=== PATIENT | female | born 2000 | race Native Hawaiian/Other Pacific Islander ===

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

== ENCOUNTER 2018-10-12 15:44 | Emergency (ER) | payer OTHER ==
[~2018-10-12] VITALS: Ht 162.6 cm; Wt 54.4 kg
[2018-10-12 16:20] VITALS: BP 131/84; TEMP 98.1
== END 2018-10-12 16:20 | disposition home or self-care (01) ==
LOC: ED 15:44
DX: B86 Scabies (principal)
CPT/HCPCS: 99281

== ENCOUNTER 2018-12-13 15:31 | Emergency (ER) | payer OTHER ==
[~2018-12-13] VITALS: Ht 162.6 cm; Wt 54.4 kg
[2018-12-13 15:35] VITALS: TEMP 97.8
[2018-12-13 16:45] VITALS: BP 113/69
[2018-12-13] MEDS ORDERED: BIRTH CONTROL PILLS PO (16:51)
== END 2018-12-13 16:45 | disposition home or self-care (01) ==
LOC: ED 15:31
DX: R55 Syncope and collapse (principal); R05 Cough; R50.9 Fever, unspecified; J02.9 Acute pharyngitis, unspecified
CPT/HCPCS: 81000; 81025; 87502; 87651; 93005; 99283

== ENCOUNTER 2021-10-14 18:56 | Emergency (ER) | payer OTHER ==
[~2021-10-14] VITALS: Ht 160 cm; Wt 56.7 kg
[~2021-10-14 18:56] MED LIST: BIRTH CONTROL PILLS PO
[2021-10-14 19:55] VITALS: BP 131/75; TEMP 97.5
== END 2021-10-14 20:00 | disposition home or self-care (01) ==
LOC: ED 18:56
DX: G43.909 Migraine, unspecified, not intractable, without status migrainosus (principal)
CPT/HCPCS: 96372; 99283; J1200; J1885; J2405